=== PATIENT | male | born 2000 | race Two or more races ===

== ENCOUNTER 2025-07-03 15:51 | Emergency (ER) | payer SELFPAY ==
[2025-07-03 16:10] VITALS: BP 136/84; PULSE 104; RESP 18; TEMP 37.2; O2SAT 98
--- NOTE | 2025-07-03 16:50 | EKG_ITS ---
[facility] Test Date: 2025-07-03 Pat Name: LUISITO HADDAD Department: Room: - Gender: Male [employer]: : 2000 Requested By: Barak Leal Order Number: [id number] Reading MD: Barak Leal Measurements Intervals [place] Rate: 84 P: 38 [place]: 173 QRS: 58 QRSD: 91 T: 29 QT: 330 QTc: 392 Interpretive Statements SINUS RHYTHM No previous ECG available for comparison /store/S0/[id number]/ecg/[id number].pdf
[2025-07-03 16:51] VITALS: BP 161/88; PULSE 103; RESP 20; O2SAT 96; BMI 30.7
--- NOTE | 2025-07-03 16:52 | PD.EDADULT ---
ED General RME/HPI General Chief complaint: General Adult/Misc Complain Stated complaint: HEAT EXHAUSTION Time Seen by Provider: 07/03/25 16:44 Arrival date/time: 07/03/25 15:51 RME / HPI RME / HPI narrative: 24-year-old male patient came in for evaluation regarding possible heat exhaustion. Apparently patient was outside playing soccer under the sun, not really drinking a lot of water, while playing, patient developed sudden onset of dizziness, nausea and not feeling well. Went home, while at home, patient developed near syncope. No vomiting noted no diarrhea no other complaints noted. Related Data Allergies Allergy/AdvReac Type Severity Reaction Status Date / Time NKA* Allergy Uncoded 02/20/11 08:25 Review of Systems Review of Systems Narrative Review of Systems: Review of system reviewed and within normal limits except mentioned in HPI ED Exam Narrative Physical exam: VITAL SIGNS: Reviewed. GENERAL APPEARANCE: Alert and interactive, follows commands, no acute distress, HEAD AND FACE: Non-traumatic. ENT: PERRL, pink conjunctivitis, eyelid no trauma, Mucous membrane dry NECK: Supple, nontender, no nuchal rigidity. CHEST: No tenderness, no crepitus, no paradoxical movement, no retractions. LUNGS: Clear, well ventilated, symmetric, no rales, no wheezing, no ronchi, no stridor, good breath sounds bilaterally. HEART: Regular rate, regular rhythm, no murmur, no gallops. ABDOMEN: Soft, positive bowel sounds, nondistended, no guarding, nontender, no rebound, no masses, RECTAL: Deferred. GENITAL: Deferred. NEUROLOGICAL: Gross motor function intact sensory function intact, Appropriate for age. MUSCULOSKELETAL: low back nontender, full range of motion. EXTREMITIES: Nontender, full range of motion. SKIN: Color pink, dry, no rash, no lacerations, no abrasions, no contusions. LYMPHATICS: Deferred. Course Quality Measures none Orders Category Date Time Status EKG (ED ONLY) *Do not use* NOW Care 07/03/25 16:51 Completed EKG (ED Only) Stat Exams 07/03/25 16:50 Draft CBC Stat Lab 07/03/25 17:24 Completed Comprehensive Metabolic Panel Stat Lab 07/03/25 17:24 Completed Partial Thromboplastin Time Stat Lab 07/03/25 17:24 Completed Ringers Lactated 1000 ml [Lactated Ringers] 1,000 ml Med 07/03/25 16:52 Discontinued IV 999 mls/hr Ringers Lactated 1000 ml [Lactated Ringers] 1,000 ml Med 07/03/25 16:52 Discontinued IV 999 mls/hr Vital Signs Vital signs: Vital Signs Temperature 98.9 F 07/03/25 16:10 Pulse Rate 104 H 07/03/25 16:10 Respiratory Rate 18 07/03/25 16:10 Blood Pressure 136/84 H 07/03/25 16:10 Pulse Oximetry (%) 98 07/03/25 16:10 Oxygen Delivery Method Room Air 07/03/25 16:10 Discharge Plan Plan Patient Disposition: HOME (Self Care) Discharge Disposition comment: Stable Prescriptions/Referrals Referrals: No Primary/Family,Physician [Primary Care Provider] - In 1 week Problem List Clinical Impression: Heat exhaustion, Dehydration Patient/Caregiver Discharge Instructions Discharge Activity: activity as tolerated Education Materials: Dehydration, ED Heat Exhaustion Additional Instructions: Thank you for the opportunity for serving you today. You are stable for discharged . You are advised to: Follow-up with your PCP in 1 to 2 days Return to ED for worsening of symptoms Increase oral fluids Please return to emergency room in 2 days for repeat kidney function test. Your creatinine today was noted to be elevated 2.4 which could be secondary to your dehydration. Print Language: [place] Stand Alone Forms: Alpa Award Info., Patient Portal Info Letter MDM Narrative [facility] hospital course: 24-year-old male patient came in for evaluation regarding possible heat exhaustion. Apparently patient was outside playing soccer under the sun, not really drinking a lot of water, while playing, patient developed sudden onset of dizziness, nausea and not feeling well. Went home, while at home, patient developed near syncope. No vomiting noted no diarrhea no other complaints noted. Patient's workup today all came back unremarkable except for leukocytosis of 15,000 however patient's creatinine was noted to be 2.4. Patient received 2 L of IV fluids, and was able to urinate a lot in the ED. Patient was advised to follow-up close with PCP in 1 to 2 days or return to emergency room in 2 days for repeat creatinine function test. Patient was also advised to drink a lot of fluids. Patient agrees with the plan Patient is stable for discharge home. Medication Administration(s) Medication Administration History Discontinued Medications Lactated Ringer's (Lactated Ringers) 1,000 mls @ 999 mls/hr IV .Q1H1M ONE Stop: 07/03/25 17:52 Last Infusion: 07/03/25 18:16 Dose: Infused Documented By: Admin: 07/03/25 17:18 Dose: 999 mls/hr Documented By: RISHABH Lactated Ringer's (Lactated Ringers) 1,000 mls @ 999 mls/hr IV .Q1H1M ONE Stop: 07/03/25 17:52 Last Infusion: 07/03/25 18:48 Dose: Infused Documented By: Admin: 07/03/25 18:00 Dose: 999 mls/hr Documented By: TOMAS
--- NOTE | 2025-07-03 16:59 | PC.NURSE ---
PATIENT BROUGHT IN BY EMS SECONDARY TO HEAT EXHAUSTION AFTER PLAYING FOOTBALL ALL MORNING. PATIENT WITH COMPLAINT OF FULL BODY ACHING AND CRAMPING. PATIENT MOVED TO ROOM AND SAT UP WITH RELIEF TO BACK PAIN. PATIENT WAS GIVEN 1 LITER FLUIDS ENROUTE. MOTHER AT BEDSIDE. WILL CONTINUE TO MONITOR.
[2025-07-03] MEDS: RINGERS LACTATED 1000 ML 1,000 ML 999 ML IV ×2 (17:18→18:00)
[2025-07-03 17:34] LABS: Basophils # (Auto) 0.0 Thou/mm3 (0.0-0.2); Basophils % (Auto) 0 % (0-2.5); Eosinophils # (Auto) 0.0 Thou/mm3 (0.0-0.5); Eosinophils % (Auto) 0 % (0-10); Hematocrit 48.6 % (41.0-53.0); Hemoglobin 17.0 g/dL (13.5-16.0); Immature Granulocytes Auto 0.06 Thou/mm3 (0.00-0.00); Lymphocytes # (Auto) 1.0 Thou/mm3 (1.0-4.8); Lymphocytes % (Auto) 7 % (10-50); Mean Corpuscular HGB Conc 35.0 g/dl (31.0-37.0); Mean Corpuscular Hemoglobin 29.5 pg (25.0-35.0); Mean Corpuscular Volume 84 fL (80-100); Monocytes # (Auto) 0.8 Thou/mm3 (0.0-0.8); Monocytes % (Auto) 6 % (0-12); Neutrophils # (Auto) 13.0 Thou/mm3 (1.8-7.7); Neutrophils % (Auto) 87 % (37-80); Nucleated Red Blood Cell # 0.00 Thou/mm3 (0.00-0.00); Nucleated Red Blood Cell % 0 /100 WBC (0); Platelet Count 308 Thou/mm3 (140-440); RDW Standard Deviation 37.9 fL (35.1-43.9); Red Blood Count 5.76 Miln/mm3 (4.50-5.90); White Blood Count 15.0 Thou/mm3 (3.8-10.6)
[2025-07-03 17:50] LABS: Partial Thromboplastin Time 25.7 Seconds (22.0-36.0)
[2025-07-03 18:00] LABS: Alanine Aminotransferase 30 U/L (10-49); Albumin, Serum 5.5 gm/dL (3.5-5.0); Albumin/Globulin Ratio 2.0 (1.2-2.2); Alkaline Phosphatase 117 U/L (46-116); Anion Gap 16 (7-16); Aspartate Amino Transferase 35 U/L (0-34); BUN/Creatinine Ratio 6 Ratio (12-20); Bilirubin,Total 0.5 mg/dL (0.3-1.2); Blood Urea Nitrogen 14 mg/dL (9-23); Calcium 10.2 mg/dL (8.3-10.6); Calcium (Corrected) 10.2 mg/dL (8.5-10.1); Carbon Dioxide 21.9 mMol/L (20.0-31.0); Chloride 100 mMol/L (98-107); Creatinine (Component) 2.4 mg/dL (0.6-1.3); Estimated Creatinine Clearance 62.9 mL/min (>60); Globulin 2.8 gm/dL (2.3-3.5); Glucose 106 mg/dL (74-106); Osmolality,Calculated 276 (275-295); Potassium 3.8 mMol/L (3.4-5.1); Sodium 138 mMol/L (136-145); Total Protein 8.3 gm/dL (5.7-8.2); eGFR 37 See Note
[2025-07-03 18:21] VITALS: BP 113/70; PULSE 81; RESP 20; TEMP 37.2; O2SAT 99
== END 2025-07-03 19:34 | disposition home or self-care (01) ==
PROVIDERS: Nurse Practitioner Family; Emergency Provider Emergency Medicine
DX: E86.0 Dehydration (principal)
CPT/HCPCS: 36415; 80053; 85025; 85730; 93005; 96360; 99283; J7120